=== PATIENT | female | born 1945 | race Hispanic/Latino ===

== ENCOUNTER 2017-08-31 04:21 | Observation (INO) | payer MEDICARE ==
[~2017-08-31] VITALS: Ht 134.6 cm; Wt 65.3 kg
[2017-08-31] MEDS ORDERED: ASPIRIN 81 MG CHEW TAB PO ONE ×2 (05:15→05:30)
[2017-08-31] MEDS ORDERED: NITROGLYCERIN 2% OINT 1 GM PKT TOP ONE (05:30)
[2017-08-31 05:41] LABS: BASOPHILS % 0.4 % (0.0-1.0); EOSINOPHILS # (AUTO) 0.1 (0.0-0.4); HEMATOCRIT 36.6 % (34.2-44.1); HEMOGLOBIN 12.9 g/dL (12.0-16.0); LYMPHOCYTES # (AUTO) 2.2 (1.0-3.2); LYMPHOCYTES % 24.1 % (18.0-39.1); MEAN CORPUSCULAR HEMOGLOBIN 31.1 pg (28-32); MEAN CORPUSCULAR HGB CONC 35.2 g/dL (31-35); MEAN CORPUSCULAR VOLUME 88.2 fL (81-99); MONOCYTES # (AUTO) 0.5 (0.2-0.8); MONOCYTES % 5.1 % (4.4-11.3); NEUTROPHILS # (AUTO) 6.2 (2.1-6.9); NEUTROPHILS % 69.1 % (38.7-80.0); PLATELET COUNT 298 x10e3/uL (140-360); RED BLOOD COUNT 4.15 x10e6/uL (3.6-5.1); RED CELL DISTRIBUTION WIDTH 12.9 % (11.7-14.4)
[2017-08-31 05:58] LABS: INR 0.92; PROTHROMBIN TIME 11.6 seconds (11.9-14.5)
[2017-08-31 05:59] LABS: PARTIAL THROMBOPLASTIN TIME 30.9 seconds (23.8-35.5)
--- NOTE | 2017-08-31 05:59 | Diagnostic Imaging Report ---
CHEST 2 VIEWS, Technique: CHEST 2 VIEWS Comparison: None Clinical history: Chest pain DISCUSSION: Heart/mediastinum: Heart size is upper limits of normal. Tortuous or ectatic descending thoracic aorta. Lungs/pleural spaces: No consolidation, pleural effusion or pneumothorax. Bones: No acute abnormality. IMPRESSION: No acute abnormality Signed by: Dr Yarelis Sheikh MD on 08/31/2017 5:55 AM
[2017-08-31 06:08] LABS: ALANINE AMINOTRANSFERASE 19 IU/L (0-55); ALBUMIN 3.8 g/dL (3.5-5.0); ALKALINE PHOSPHATASE 113 IU/L (40-150); ANION GAP 15.4 mmol/L (8-16); BLOOD UREA NITROGEN 23 mg/dL (7-26); BUN/CREATININE RATIO 27 (6-25); CALCIUM 9.5 mg/dL (8.4-10.2); CARBON DIOXIDE 24 mmol/L (22-29); CHLORIDE 101 mmol/L (98-107); CREATINE KINASE 131 IU/L (29-168); CREATININE, SERUM 0.84 mg/dL (0.57-1.11); EST GLOMERULAR FILTRATION RATE > 60 ML/MIN (60-); GLUCOSE 184 mg/dL (74-118); POTASSIUM 4.4 mmol/L (3.5-5.1); SODIUM 136 mmol/L (136-145)
[2017-08-31] MEDS ORDERED: SODIUM CHLORIDE FLUSH 10 ML SYR INJ PRN (06:45)
[2017-08-31] MEDS ORDERED: DEXTROSE 50% SYRINGE 50 ML IV PRN (06:45)
[2017-08-31] MEDS ORDERED: ONDANSETRON HCL INJ 2 MG/ML VIAL IV PRN (06:45)
--- OUTSIDE RECORDS SUMMARY | 2017-08-31 06:49 | XMS REPORT ---
Author Author [facility] Address Unknown Phone Unavailable Care Team Providers Care President And Chief Operating Officer Name Role Phone TONG ZEPEDA Unavailable Unavailable Problems This patient has no known problems. Allergies, Adverse Reactions, Alerts This patient has no known allergies or adverse reactions. Medications This patient has no known medications. Results Test Description Test Time Test Comments Text Results Atomic Results Result Comments CHEST [address] [address] Patient Name: JACKI ALVAREZ MR #: [id number] : 1945 Age/Sex: 72/F Req #: [id number] Adm Physician: Ordered by: TONG ZEPEDA MD Report #: [id number] Location: ER Room/Bed: ___ Procedure: [id number] DX/CHEST 2 VIEWS Exam Date: 08/31/17 Exam Time: 0538 REPORT STATUS: Signed CHEST 2 VIEWS, Technique: CHEST 2 VIEWS Comparison: None Clinical history: Chest pain DISCUSSION: Heart/mediastinum: Heart size is upper limits of normal. Tortuous or ectatic descending thoracic aorta. Lungs/pleural spaces : No consolidation, pleural effusion or pneumothorax. Bones: No acute abnormality. IMPRESSION: No acute abnormality Signed by: Dr Jess Sheikh MD on 08/31/2017 5:55 AM Dictated By: JESS SHEIKH MD 4 Transcribed By: ANA on 08/31/17554 COPY TO: TONG ZEPEDA MD
[2017-08-31] MEDS: INSULIN REGULAR, HUMAN 100 UNIT/1 ML 3ML VIAL SQ SCH ×5 (07:30→20:05)
[2017-08-31 07:37] LABS: CHOL/HDL RATIO 4.5 (3.0-3.6)
[2017-08-31] MEDS: LISINOPRIL 10 MG TAB PO SCH ×2 (07:58→09:00)
[2017-08-31] MEDS: LABETALOL HCL 100 MG TAB PO SCH ×3 (07:58→20:04)
[2017-08-31 08:27] VITALS: BP 110/63
[2017-08-31] MEDS: ASPIRIN 81 MG ENTERIC COATED PO SCH (09:00)
[2017-08-31 09:10] VITALS: BP 110/63
[2017-08-31] MEDS ORDERED: NOVOLOG MI100 UNIT/1 SQ (10:26)
[2017-08-31] MEDS ORDERED: HYDROCHLOROTHIA25 MG PO (10:29)
[2017-08-31] MEDS ORDERED: CARTIA XT120 MG PO (10:29)
[2017-08-31] MEDS ORDERED: GLIPIZIDE ER5 MG PO (10:29)
[2017-08-31] MEDS ORDERED: LOSARTAN POTAS100 MG PO (10:29)
--- NOTE | 2017-08-31 11:33 | History and Physical ---
PRIMARY CARE PHYSICIAN: Dr. Marcus CHIEF COMPLAINT: Chest pain. HISTORY OF PRESENT ILLNESS: This is a 72-year-old woman with a history of diabetes mellitus, type 2, now developing left-sided chest pain radiating to her left arm. Denies any shortness of breath. She did have a left-sided headache. Therefore, she came to the hospital. No history of myocardial infarction. No stroke. PAST MEDICAL HISTORY: Diabetes mellitus, type 2, hypertension, intestinal disease requiring surgery 8 years ago. PAST SURGICAL HISTORY: Intestinal surgery. ALLERGIES: PER ELECTRONIC MEDICAL RECORD. FAMILY HISTORY/SOCIAL HISTORY: Patient is . She has 3 children. No alcohol, illicits or cigarettes. MEDICATIONS: Per electronic medical record. REVIEW OF SYSTEMS: Denies any dizziness. Denies any fever, chills or sweats. PHYSICAL EXAMINATION VITAL SIGNS: Have been reviewed. GENERAL: A tired-appearing woman resting in bed. HEENT: Anicteric. Pupils respond to light. No oral lesions. CARDIOVASCULAR: Normal S1 and S2. LUNGS: Moderate breath sounds. ABDOMEN: Soft, nontender and nondistended. EXTREMITIES: No edema or calf tenderness. MUSCULOSKELETAL: She has left-sided chest tenderness, which is exquisitely tender to palpation. She has tenderness of the left shoulder as well, but less so. SKIN: Dry. PSYCHIATRIC: Flat affect. LABS: Reviewed. MEDICATIONS: Reviewed. ASSESSMENT AND PLAN: A 72-year-old woman with: 1. Musculoskeletal chest pain on the left: Will follow up the cardiac enzymes. This does not appear to be acute coronary syndrome. Her electrocardiogram is normal. Will obtain a lipid panel. Will use aspirin and will use beta david. 2. Diabetes mellitus, type 2: Will obtain a hemoglobin A1c and lipid panel. 3. Hypertensive emergency with headache and chest discomfort: Blood pressure as high as 199/95. Heart rate 55-75. Will start her on labetalol and lisinopril. 4. Overweight state: Body mass index is 25.1. Needs caloric restriction. 5. Prophylaxis: Will use Lovenox and Pepcid. 6. Disposition: Will obtain 2-D echocardiogram, but likely this is just musculoskeletal chest pain. Job#: [id number] MA
[2017-08-31 11:35] VITALS: BP 106/53
[2017-08-31] MEDS: NITROGLYCERIN 2% OINT 1 GM PKT TOP SCH ×2 (12:00→17:14)
[2017-08-31 13:35] LABS: CREATINE KINASE 107 IU/L (29-168)
[2017-08-31 14:48] VITALS: BP 106/53
[2017-08-31 15:33] VITALS: BP 105/56
[2017-08-31] MEDS: MEGESTROL ACETATE 40 MG TAB PO SCH (17:26)
[2017-08-31 20:00] VITALS: BP 115/58
[2017-08-31] MEDS ORDERED: ZOLPIDEM TARTRATE 5 MG TAB PO PRN (21:00)
[2017-08-31] MEDS ORDERED: ZOLPIDEM TARTRATE 5 MG TAB PO SCH (21:00)
[2017-08-31] MEDS: VENLAFAXINE HCL 37.5MG XR CAP PO SCH (21:38)
[2017-08-31 21:43] LABS: CREATINE KINASE 102 IU/L (29-168)
[2017-09-01] VITALS: BP 140/65
[2017-09-01] MEDS: NITROGLYCERIN 2% OINT 1 GM PKT TOP SCH ×2 (00:30→05:24)
[2017-09-01 04:00] VITALS: BP 117/58
[2017-09-01] MEDS ORDERED: ASPIRIN EC81 MG PO (06:45)
[2017-09-01] MEDS ORDERED: LABETALOL HCL100 MG PO (06:45)
[2017-09-01] MEDS ORDERED: EFFEXOR XR 3737.5 MG PO (06:45)
[2017-09-01] MEDS ORDERED: LISINOPRIL10 MG PO (06:45)
[2017-09-01] MEDS ORDERED: METFORMIN HCL500 MG PO (06:45)
[2017-09-01] MEDS ORDERED: PRAVASTATIN SOD40 MG PO (06:46)
[2017-09-01 07:12] LABS: BASOPHILS % 0.4 % (0.0-1.0); EOSINOPHILS # (AUTO) 0.1 (0.0-0.4); EOSINOPHILS % 0.8 % (0.0-6.0); HEMATOCRIT 32.7 % (34.2-44.1); HEMOGLOBIN 11.3 g/dL (12.0-16.0); LYMPHOCYTES # (AUTO) 2.1 (1.0-3.2); LYMPHOCYTES % 18.8 % (18.0-39.1); MEAN CORPUSCULAR HEMOGLOBIN 30.5 pg (28-32); MEAN CORPUSCULAR HGB CONC 34.6 g/dL (31-35); MEAN CORPUSCULAR VOLUME 88.1 fL (81-99); MONOCYTES # (AUTO) 0.5 (0.2-0.8); MONOCYTES % 4.8 % (4.4-11.3); NEUTROPHILS # (AUTO) 8.3 (2.1-6.9); PLATELET COUNT 260 x10e3/uL (140-360); RED BLOOD COUNT 3.71 x10e6/uL (3.6-5.1)
[2017-09-01 07:37] LABS: ALANINE AMINOTRANSFERASE 16 IU/L (0-55); ALBUMIN 3.4 g/dL (3.5-5.0); ALKALINE PHOSPHATASE 82 IU/L (40-150); ANION GAP 11.5 mmol/L (8-16); BLOOD UREA NITROGEN 22 mg/dL (7-26); BUN/CREATININE RATIO 26 (6-25); CALCIUM 8.9 mg/dL (8.4-10.2); CARBON DIOXIDE 25 mmol/L (22-29); CHLORIDE 104 mmol/L (98-107); CREATININE, SERUM 0.84 mg/dL (0.57-1.11); EST GLOMERULAR FILTRATION RATE > 60 ML/MIN (60-); GLUCOSE 214 mg/dL (74-118); POTASSIUM 4.5 mmol/L (3.5-5.1); SODIUM 136 mmol/L (136-145)
[2017-09-01 08:59] VITALS: BP 127/60
[2017-09-01] MEDS: VENLAFAXINE HCL 37.5MG XR CAP PO SCH (09:10)
[2017-09-01] MEDS: MEGESTROL ACETATE 40 MG TAB PO SCH (09:10)
[2017-09-01] MEDS: ASPIRIN 81 MG ENTERIC COATED PO SCH (09:10)
[2017-09-01] MEDS: LABETALOL HCL 100 MG TAB PO SCH (09:11)
[2017-09-01] MEDS: LISINOPRIL 10 MG TAB PO SCH (09:11)
[2017-09-01] MEDS: INSULIN REGULAR, HUMAN 100 UNIT/1 ML 3ML VIAL SQ SCH (09:12)
== END 2017-09-01 10:37 | disposition home or self-care (01) ==
LOC: ER 04:21 → ERHOLD 06:46 → IMCU 07:21
PROVIDERS: ADMIT Internal Medicine; ATTEND Internal Medicine
DX: R07.89 Other chest pain (principal); E11.9 Type 2 diabetes mellitus without complications; R51 Headache; I10 Essential (primary) hypertension; R68.84 Jaw pain
CPT/HCPCS: 36415 ×2; 71046; 80053 ×2; 80061; 82550; 82553; 82948 ×2; 83036; 83880; 84484; 85025 ×2; 85610; 85730; 93005; 93306; 99284; G0378 ×2